=== PATIENT | male | born 1980 | race Caucasian/White ===

== ENCOUNTER 2017-11-27 09:16 | Day surgery (SDC) | payer OTHER ==
--- NOTE | 2017-11-26 16:00 | HP ---
HISTORY AND PHYSICAL: DATE OF ADMISSION: 11/27/17 He is coming in for the same day surgery 11/27/17, [facility], [facility]. CHIEF COMPLIANT: Left wrist and hand pain and numbness and left ring finger mass. HISTORY OF PRESENT ILLNESS: The left ring finger has had a painful mass over the past 4 to 5 months. He has tried to break it with pressure and this has caused increased pain and it has been unsuccess ful and it is bothering him with all of his daily activities and his work as a contractor. Whenever the area gets pressed on or hit , it is markedly uncomfortable, and so we have recommended removal of this. His left hand has had numbness and tingling mainly in the index finger and pain for the last couple o f years. This awakens him at night some. He is okay in his elbow, shoulder and neck. The problem i s aggravated with his work as a contractor and is desirous to have relief of the numbness, pain and t ingling. PAST MEDICAL HISTORY: No hypertension. No DVT or pulmonary embolism. No arrhythmia. He has had as thma. No diabetes. He has had chronic low back pain affecting the low back in the midline and to th e left side and he has had previous workup for this. He had right carpal tunnel surgery in 2006, which relieved his symptoms until the last couple of year s. In 2016, he had some weight loss and workup with Dr. Cutler, which showed some concern regarding jitendra er changes. Other past injuries, multiple concussions from boxing. MEDICATIONS: Daily medications, 1. Cymbalta 120 mg each day. 2. Ibuprofen 400 mg each day. 3. Hydrocodone 5 mg 1 to 2 tablets each month. ALLERGIES: Allergy to ASPIRIN which causes stomach upset and pain. No allergies to antibiotics. FAMILY HISTORY: The family history is positive for cancer and rheumatoid arthritis. Negative for di abetes and cardiac. SOCIAL HISTORY: Lives with his spouse. He is a contractor. No smoking. One drink per week. He is right handed and enjoys boxing and staying fit. REVIEW OF SYSTEMS: Negative for chest pain, shortness of breath. He does have chronic low back pain and he has had some weight gain and some fatigue. PHYSICAL EXAMINATION GENERAL: Well nourished and well developed, not acutely distressed. HEENT: His head and neck moving without difficulty. The head is NC/AT. LUNGS: The lungs are clear bilaterally. CARDIAC: The heart is regular. S1 and S2 normal. No murmurs or gallops. ABDOMEN: The abdomen is soft and nontender. No organomegaly. EXTREMITIES: The left hand shows 2+ radial pulse, positive Phalen's test, positive Tinel's test over the median nerve, negative over the ulnar nerve. His fist is full. There is no hand swelling. Fis t opening is full. He has altered touch sensation in the left index finger versus the little finger. NEUROLOGIC: Cranial nerves are grossly intact. DIAGNOSTIC STUDIES: The x-rays of left wrist are satisfactory. The left ring finger has a painful pea-sized lump on the volar aspect in the proximal segment of the ring finger, which is tender. IMPRE SSION: Left carpal tunnel syndrome and left ring finger cyst of the tendon sheath. PLAN: Left carpal tunnel release and excision of left ring finger painful cyst. Goals, risks and com plications of surgical care have been discussed with the patient. His questions were answered. [id number]/[facility] #: [id number]
[~2017-11-27 09:16] MED LIST: Buffered Lidocaine 0.9% SYRIN* 5 ML/SYR SYRINGE INTRADERM ONE
[2017-11-27] MEDS ORDERED: ceFAZolin 2 GM PREMIX (*) 2 GM/50 ML BAG IVPB ONE (09:23)
[2017-11-27] MEDS ORDERED: Buffered Lidocaine 0.9% SYRIN* 5 ML/SYR SYRINGE ONE (09:23)
[2017-11-27] MEDS ORDERED: Midazolam* 1 MG/ML 10 ML VIAL (10 MG) ONE (09:45)
[2017-11-27] MEDS ORDERED: fentaNYL* 50 MCG/ML 2 ML VIAL (100 MCG VIAL) ONE (09:56)
[2017-11-27] MEDS ORDERED: Bupivacaine 0.25% SDV* 30 ML ONE (10:01)
[2017-11-27] MEDS ORDERED: Dexamethasone IV* 4 MG/ML 1 ML (4 MG) ONE (10:03)
[2017-11-27] MEDS ORDERED: Propofol* 10 MG/ML 20 ML BTL IV PUSH ONE (10:09)
[2017-11-27] MEDS ORDERED: oxyCODONE TAB* 5 MG TAB PO PRN (10:14)
[2017-11-27] MEDS ORDERED: Naloxone* 0.4 MG/ML 1 ML VIAL IV PRN (10:14)
[2017-11-27] MEDS ORDERED: fentaNYL* 50 MCG/ML 2 ML VIAL (100 MCG VIAL) IV PRN (10:14)
[2017-11-27] MEDS ORDERED: HYDROcodone/ACETAMIN 5-325 MG* 1 TAB PO PRN (10:14)
[2017-11-27] MEDS ORDERED: Ondansetron INJ* 2 MG/ML VIAL IV PRN (10:14)
[2017-11-27] MEDS ORDERED: Ketorolac INJ* 30 MG/ML 1 ML VIAL ONE (10:50)
[2017-11-27 11:29] VITALS: BP 129/82
--- NOTE | 2017-11-28 00:42 | OP ---
DATE OF OPERATION: 11/27/17 - SDS DATE OF : 78 SURGICAL CARE: Left hand. SURGEON: Orlin Navarrete MD ASSISTANT PROFESSOR OF RADIOLOGY: DENA Bynum ANESTHESIOLOGIST: 1. Enmanuel Montalvo MD, sedation with monitoring. 2. Dr. Navarrete, local anesthetic, left wrist, hand, and finger. ANESTHESIA: Sedation with monitoring; local anesthetic left wrist, hand, and finger 0.25% Marcaine without epinephrine. PRE-OP DIAGNOSIS: Left carpal tunnel syndrome and painful cyst of the tendon sheath, left ring finger. POST-OP DIAGNOSIS: Left carpal tunnel syndrome and painful cyst of the tendon sheath, left ring finger. OPERATIVE PROCEDURE: Left carpal tunnel release with exploration and decompression of the median nerve, distal forearm, wrist and hand, and removal of painful cyst in left ring finger, proximal segment and volar. COMPLICATIONS: There were no complications. DRAINS: There were no drains. CONDITION: Stable to the recovery room. INDICATIONS: Left carpal tunnel syndrome with severe hand pain, numbness, and tingling and painful cyst. DESCRIPTION OF PROCEDURE: The patient was brought to the hospital and left on the stretcher. The left proximal forearm was wrapped with Webril and a tourniquet. The left forearm, wrist, and hand were then prepped and draped in the usual manner for surgical care of the wrist and hand. After prepping and draping, we did our universal protocol time-out confirming Uzair Bronson and a plan for carpal tunnel surgery and removal of the cyst. We all agreed and we proceeded. Local anesthetic was infiltrated into the distal volar forearm just proximal to the wrist creases with a 25-gauge needle. The carpal tunnel was instilled with Marcaine 0.25%, no epinephrine in the skin and the subcu around the proposed carpal tunnel surgery on the ring finger. The skin was anesthetized and tendon sheath anesthetized and then the skin and subcu around the surgery anesthetized. The hand was exsanguinated. The tourniquet was elevated to 250. Carpal tunnel surgery was done first. A 2 cm skin incision was made in line with extension of the palmaris longus tendon into the palm. The skin and subcu divided down to the palmar fascia. Careful hemostasis checked and achieved utilizing electrocautery. The palmar fascia was opened into the carpal tunnel. We then worked distally dividing all tight structures over the median nerve and its branches going to the proximal palmar arch. After that, we then worked proximally dividing the deep antebrachial fascia in continuity with the transverse carpal ligament. I cleaned the deep side of the fascia, the superficial side of the fascia and then the scissors were then run up to the fascia 1.5 inches proximal to the skin incision. The median nerve had a typical waistband-like constriction under the tightest part of the volar carpal ligament and the radial bursa was cleared. The flexor pollicis longus was normal. The ulnar bursa was also clear. The skin was closed with interrupted vertical mattress sutures of 4-0 Prolene. A transverse skin incision was made over the lump on the proximal segment of the ring finger volar side. Skin and subcu divided down to the mass. Care was taken not to divide anything sharply and to move the neurovascular bundles radially and ulnarwards respectively. The cyst was closely adherent to the tendon sheath and the cyst was windowed out of the tendon sheath with a 15 blade and scissors. I inspected the tendon sheath to see that there was no other area that might give rise to another cyst. The wound was irrigated. The skin was closed with interrupted vertical mattress sutures of 4-0 Prolene and we did a little more local anesthetic in both areas with a 25-gauge needle. A digital block on the ring finger and dressing was applied after washing and drying with Betadine soaked release sterile gauze with fluffs, a 4-inch Webril and a 4-inch Yvon bandage and with the wrist neutral to extended, the patient was returned to the recovery area in stable and satisfactory condition having tolerated the procedure very well. The cyst was about the size of a pea. [id number]/[facility] #: [id number] [facility]
== END 2017-11-27 11:43 | disposition home or self-care (01) ==
LOC: OR 09:16
PROVIDERS: ATTEND Orthopaedic Surgery
DX: G56.02 Carpal tunnel syndrome, left upper limb (principal); M67.432 Ganglion, left wrist
CPT/HCPCS: 88304; J0690; J1100; J1885; J2250; J2704; J3010

== ENCOUNTER 2019-06-16 15:26 | Emergency (ER) | payer OTHER ==
[2019-06-16] MEDS ORDERED: methylPREDNISolone 125 MG* 2 ML VIAL IV ONE (18:57)
[2019-06-16] MEDS ORDERED: Famotidine IV* 10 MG/ML 2 ML (20 mg) IV SLOW PU ONE (18:57)
[2019-06-16] MEDS ORDERED: diPHENhydraMINE IV* 50 MG/ML 1 ml VIAL (BENADRYL) IV ONE (18:58)
[2019-06-16] MEDS ORDERED: diPHENhydraMINE PO* 25 MG PO ONE (19:10)
[2019-06-16] MEDS ORDERED: predniSONE TAB* 20 MG PO ONE (19:10)
[2019-06-16] MEDS ORDERED: Famotidine TAB* 20 MG PO ONE (19:10)
--- NOTE | 2019-06-16 19:58 | ED ---
Allergic Reaction/Systemic - HPI Summary HPI Summary: 39 year old male presents with allergic reaction today. He states he got bit by multiple bees on his ankles and his right wrist. He states the area has been swelling. He did take an antihistamine prior to coming. He denies any chest pressures or shortness ob breath. No difficulty swallowing. No abdominal pain. No nausea vomiting. Does have a history of the bee allergies but did not take his EpiPen. He states his swelling has been going down. was placed in room 3 hours after arrival and has not had any changes symptoms. - History of Current Complaint Chief Complaint: EDAllergicReaction Time Seen by Provider: 06/16/19 18:57 Pain Intensity: 4 - Allergies/Home Medications Allergies/Adverse Reactions: Allergies Allergy/AdvReac Type Severity Reaction Status Date / Time aspirin Allergy GI Upset Verified 06/16/19 15:42 bee venom protein (honey bee) Allergy Anaphylatic Verified 06/16/19 15:42 Shock diazepam Allergy rage Verified 06/16/19 15:42 PMH/Surg Hx/FS Hx/Imm Hx Endocrine/Hematology History: Denies: Hx Anticoagulant Therapy, Hx Diabetes, Hx Systemic Lupus Erythematosus, Hx Thyroid Disease, Hx Anemia Cardiovascular History: Denies: Hx Congestive Heart Failure, Hx Hypertension, Hx Pacemaker/ICD, Other Cardiovascular Problems/Disorders Respiratory History: Reports: Hx Asthma - mild, stated he hasn't had to use in inhaler in 7 years, Other Respiratory Problems/Disorders - bronchitis twice, not since age 19 Denies: Hx Chronic Obstructive Pulmonary Disease (COPD), Hx Pneumonia, Hx Sleep Apnea GI History: Denies: Other GI Disorders History: Reports: Other Problems/Disorders - One UTI before Denies: Hx Dialysis, Hx Renal Disease Musculoskeletal History: Reports: Hx Back Problems, Hx Orthopedic Injury - breaks and chips off fingers, hand, goodwin, forearms, Other Musculoskeletal History - dislocated left shoulder, carpal tunnel right hand Denies: Hx Arthritis, Hx Rheumatoid Arthritis Sensory History: Reports: Hx Contacts or Glasses - readers Denies: Hx Hearing Aid Opthamlomology History: Reports: Hx Contacts or Glasses - readers Neurological History: Reports: Hx Migraine, Hx Seizures - In early years only, stopped at age 4, Other Neuro Impairments/Disorders - Up to 19 concussions - 10 verified Denies: Hx Dementia Psychiatric History: Denies: Hx Anxiety, Hx Depression, Hx Panic Disorder, Hx Post Traumatic Stress Disorder, Hx Substance Abuse - Cancer History Hx Chemotherapy: No - Surgical History Surgery Procedure, Year, and Place: Oral sx for wisdom teeth. Left knee arthroscopy to remove cartilage. Carpal tunnel right hand/LEFT HAND Hx Anesthesia Reactions: No Infectious Disease History: No Infectious Disease History: Denies: Hx Clostridium Difficile, Hx Hepatitis, Hx Human Immunodeficiency Virus (HIV), Hx Shingles, Hx Tuberculosis, Traveled Outside the [place] in Last 30 Days - Family History Known Family History: Positive: Non-Contributory - Social History Alcohol Use: None Alcohol Amount: 1 Substance Use Type: Reports: None Smoking Status (MU): Never Smoked Tobacco Review of Systems Negative: Fever Negative: Chest Pain Negative: Shortness Of Breath Positive: Edema Positive: Rash All Other Systems Reviewed And Are Negative: Yes Physical Exam Triage Information Reviewed: Yes Vital Signs On Initial Exam: Initial Vitals Temp Pulse Resp BP Pulse Ox 98.1 F 73 18 146/92 98 06/16/19 15:38 06/16/19 15:38 06/16/19 15:38 06/16/19 15:38 06/16/19 15:38 Vital Signs Reviewed: Yes Appearance: Positive: Well-Appearing Skin: Positive: Warm, Dry Head/Face: Positive: Normal Head/Face Inspection Eyes: Positive: Normal, Conjunctiva Clear ENT: Positive: Pharynx normal Respiratory/Lung Sounds: Positive: Clear to Auscultation, Breath Sounds Present Cardiovascular: Positive: Normal, RRR Abdomen Description: Positive: Nontender, Soft Bowel Sounds: Positive: Present Musculoskeletal: Positive: Edema Left, Edema Right Neurological: Positive: Normal Diagnostics - Vital Signs Vital Signs Temp Pulse Resp BP Pulse Ox 06/16/19 17:50 97.9 F 79 16 155/75 98 06/16/19 15:38 98.1 F 73 18 146/92 98 - Laboratory Lab Statement: Any lab studies that have been ordered have been reviewed, and results considered in the medical decision making process. Allergic Reaction Course/Dx - Course Course Of Treatment: 39 year old male presents with allergic reaction today. He states he got bit by multiple bees on his ankles and his right wrist. He states the area has been swelling. He did take an antihistamine prior to coming. He denies any chest pressures or shortness ob breath. No difficulty swallowing. No abdominal pain. No nausea vomiting. Does have a history of the bee allergies but did not take his EpiPen. He states his swelling has been going down. was placed in room 3 hours after arrival and has not had any changes symptoms. on exam urticaria rash and swelling to bilateral legs. Gave oral prednisone and Pepcid and Benadryl and symptoms improved. Will discharge with same. Patient understands agrees with plan. - Diagnoses Differential Diagnosis/HQI/PQRI: Positive: Anaphylaxis, Local Allergic Reaction , Urticaria Provider Diagnoses: Bee sting Discharge - Sign-Out/Discharge Documenting (check all that apply): Patient Departure Patient Received Moderate/Deep Sedation with Procedure: No - Discharge Plan Condition: Good Disposition: HOME Prescriptions: Famotidine TAB* [Pepcid 20 MG TAB*] 20 mg PO BID #8 tab hydrOXYzine HCL TAB* [Atarax 25 MG TAB*] 25 mg PO QID PRN #8 tab PRN Reason: Hives predniSONE TAB* [Deltasone TAB*] 50 mg PO DAILY #4 tab Patient Education Materials: Urticaria (ED) Referrals: Deanne Gonzales NP [Primary Care Provider] - Additional Instructions: Take Benadryl every 6 hours at night and hydroxyzine during the day every 6 hours Take Pepcid twice a day for 4 days Take steroid once a day for 4 days starting tomorrow Return to ED if shortness of breath, chest pain, or if develop any new or worsening symptoms - Billing Disposition and Condition Condition: GOOD Disposition: Home - Attestation Statements Provider Attestation: I am administratively signing this document. I was available for consultation for this patient. I did not evaluate the patient, did not have a doctor/patient relationship with the patient, or participate in any medical decision making or disposition decisions unless I am specifically named in the chart as having consulted on the patient. If I have consulted on the patient, please see my own ED note on the patient encounter. Eli Casiano MD
[2019-06-16 20:19] VITALS: BP 132/78
== END 2019-06-16 20:18 | disposition home or self-care (01) ==
LOC: ED 15:26
DX: T63.441A Toxic effect of venom of bees, accidental (unintentional), initial encounter (principal); M79.89 Other specified soft tissue disorders; L50.9 Urticaria, unspecified; Y92.9 Unspecified place or not applicable; J45.909 Unspecified asthma, uncomplicated; Z88.6 Allergy status to analgesic agent; Z91.030 Bee allergy status; Z91.09 Other allergy status, other than to drugs and biological substances
CPT/HCPCS: 99282; A9270-GY; J7512